=== PATIENT | female | born 1985 | race African-American/Black ===

== ENCOUNTER → 2020-06-15 | Outpatient (CLI) | payer OTHER ==
[~2020-06-15] MED LIST: APAP500; COLACE 100 MG100 MG; IBUPROFEN 800800 M1; IROSPAN 24/6 T1 EACH; LANOLIN56 GM; MOM; MOM PO; NORCO 10-325 T1 EACH; TRINATE TABLET1 TAB PO; VITAMIN D1000 UNI1 PO
== END ==
LOC: ULTRA 13:59
PROVIDERS: ATTEND Obstetrics & Gynecology
DX: O32.1XX0 Maternal care for breech presentation, not applicable or unspecified (principal); Z3A.20 20 weeks gestation of pregnancy